=== PATIENT | female | born 1985 | race Hispanic/Latino ===

== ENCOUNTER → 2017-10-26 | Day surgery (SDC) | payer BC, OTHER ==
[~2017-10-26] MED LIST: METHOTREXATE SODIUM IM SCH; PRE FILLED IM SCH
== END ==
LOC: ER/OP 11:53
PROVIDERS: ATTEND Emergency Medicine
DX: O03.9 Complete or unspecified spontaneous abortion without complication (principal)
CPT/HCPCS: J9250

== ENCOUNTER 2018-03-03 14:40 | Emergency (ER) | payer BC ==
[2018-03-03 15:13] LABS: Bilirubin Negative (Negative); Blood, Urine Negative (Negative); Clarity CLEAR (Clear); Glucose, Urine (Dipstick) Negative (Negative); Leukocyte Negative (Negative); Nitrite Negative (Negative); Protein, Urine (Dipstick) Trace mg/dL (Neg-Trace); Specific Gravity, Urine 1.036 (1.002-1.036); pH, Urine 6.5 (5.0-9.0)
[2018-03-03 15:14] LABS: #Eosinphils 0.1 thou/uL (0.0-0.7); #Lymphocytes 1.8 thou/uL (1.20-3.40); #Monocytes 0.5 thou/uL (0.11-0.59); #Neutrophils 5.1 thou/uL (1.40-6.50); %Basophils 0.6 % (0.0-1.0); %Eosinophils 0.8 % (0.0-10.0); %Neutrophils 68.7 % (42.0-75.0); Hemoglobin 13.1 g/dL (12.0-16.0); Mean Corpuscular HGB CONC 34.6 g/dL (32.0-36.0); Mean Corpuscular Hemoglobin 33.9 pg (27.0-31.0); Mean Corpuscular Volume 97.9 fL (78.0-98.0); Mean Platelet Volume 7.5 fL (7.4-10.4); Platelet Count 267 thou/uL (130-400); RBC Distribution Width 11.7 % (11.5-14.5); Red Blood Cell (RBC) Count 3.88 mill/uL (4.20-5.40); White Blood Cell (WBC) Count 7.4 thou/uL (4.8-10.8)
[2018-03-03 15:32] LABS: ALT (SGPT) 57 U/L (8-55); AST (SGOT) 35 U/L (5-34); Albumin 4.6 g/dL (3.5-5.0); Alkaline Phosphatase 67 U/L (40-150); Anion Gap 13 mmol/L (10-20); BUN (Urea Nitrogen) 15 mg/dL (7.0-18.7); Bilirubin, Total 0.5 mg/dL (0.2-1.2); Calc. Creatinine Clearance 0 mL/min (70-130); Calcium 9.6 mg/dL (7.8-10.44); Carbon Dioxide 26 mmol/L (22-29); Chloride 104 mmol/L (98-107); Estimated GFR-MDRD 82; Globulin 3.4 g/dL (2.4-3.5); Glucose 88 mg/dL (70-105); Potassium 3.6 mmol/L (3.5-5.1); Sodium 139 mmol/L (136-145)
--- NOTE | 2018-03-03 15:53 | ULT ---
PELVIC SONOGRAM TRANSABDOMINAL AND TRANSVAGINAL IMAGING WITH DUPLEX EVALUATION: HISTORY: Pain and bleeding. Recent miscarriage. FINDINGS: The urinary bladder is decompressed. The uterus has a heterogeneous echotexture and is 9.8 cm. The endometrium is 1.2 cm without a gestational sac apparent. Minimal free fluid within the pelvis. The right ovary is 2.4 cm and has a normal appearance, with go od color and spectral Doppler flow. The left ovary measures up to 5.5 cm and demonstrates good color and spectral Doppler flow. Complex cyst at the left adnexa measures up to 3.9 x 3.1 cm in greatest diameter. IMPRESSION: No evidence of intrauterine gestation. In the setting of early , the complex left adnexal l esion, 3.9 cm, must be viewed with some degree of concern regarding the possibility of an ectopic pre gnancy. Close laboratory correlation and sonographic followup is required. POS: ROBIN
== END 2018-03-03 17:19 | disposition home or self-care (01) ==
LOC: ERS 14:40
DX: O20.9 Hemorrhage in early pregnancy, unspecified (principal); Z3A.01 Less than 8 weeks gestation of pregnancy
CPT/HCPCS: 36415; 76856; 80053; 81003; 84702; 85025; 86850; 86900; 86901

== ENCOUNTER 2019-08-24 05:35 | Inpatient (IN) | payer BC, OTHER ==
[2019-08-24] MEDS ORDERED: CEFAZOLIN 2 GM in Premix Bag 1 BAG IVPB SCH (06:14)
[2019-08-24] MEDS ORDERED: Ondansetron PF 4 MG/2 ML Vial IVP PRN ×3 (06:14→09:08)
[2019-08-24] MEDS ORDERED: Bicitra 30 ML UDCUP PO SCH (06:14)
[2019-08-24] MEDS ORDERED: Promethazine HCl 25 MG/ML VIAL IM PRN ×2 (06:14→08:31)
[2019-08-24] MEDS ORDERED: Lactated Ringer's 1,000 ML IV SCH (06:14)
[2019-08-24] MEDS ORDERED: hydrALAZINE 20 MG/ML VIAL SLOW IVP PRN ×2 (06:14→09:08)
[2019-08-24 06:18] VITALS: BMI 30.7
[2019-08-24 06:35] LABS: Hemoglobin 11.2 g/dL (12.0-16.0); Mean Corpuscular Volume 94.2 fL (78.0-98.0); Platelet Count 262 thou/uL (130-400); RBC Distribution Width 12.2 % (11.5-14.5); Red Blood Cell (RBC) Count 3.51 mill/uL (4.20-5.40); White Blood Cell (WBC) Count 6.7 thou/uL (4.8-10.8)
[2019-08-24 07:13] LABS: HBSAg Index 0.18 S/CO (0-0.99); Hep B Surf Ag Non-Reactive S/CO (NonReactive); Syphilis Antibody Nonreactive (Nonreactive); Syphilis Antibody Index 0.04 S/CO (<1.00 Non-Reactive)
[2019-08-24] MEDS ORDERED: MORPHINE 5 MG/10 ML PF VIAL ONE (07:15)
[2019-08-24] MEDS ORDERED: Fentanyl 100 MCG/2 ML VIAL ONE (07:15)
[2019-08-24] MEDS ORDERED: Dexamethasone 4 mg/ml Vial ONE (07:16)
[2019-08-24] MEDS ORDERED: PHENYLEPHRINE-NS 100 MCG/ML 10 ML SYRINGE ONE (07:16)
[2019-08-24] MEDS ORDERED: Oxytocin 10 UNITS/ML VIAL ONE (07:16)
[2019-08-24] MEDS ORDERED: Ketorolac Tromethamine 30 MG/ML VIAL ONE (07:16)
[2019-08-24] MEDS ORDERED: ePHEDrine/0.9% NaCl/PF SYRINGE 50 mg/10 ml ONE (07:16)
[2019-08-24] MEDS ORDERED: Ondansetron PF 4 MG/2 ML Vial ONE (07:16)
[2019-08-24] MEDS ORDERED: Meperidine HCl/PF 25 MG/ML VIAL SLOW IVP PRN (08:31)
[2019-08-24] MEDS ORDERED: Promethazine HCl 25 MG SUPP PR PRN (08:31)
[2019-08-24] MEDS ORDERED: Naloxone HCl 0.4 mg/ml Vial IV PRN (08:31)
[2019-08-24] MEDS ORDERED: HYDROmorphone 2 MG/ML VIAL SLOW IVP PRN (08:31)
[2019-08-24] MEDS ORDERED: Naloxone HCl 0.4 mg/ml Vial IVP PRN ×2 (08:31)
[2019-08-24] MEDS ORDERED: L&D-Morphine 4 MG/ML VIAL SLOW IVP PRN (08:31)
[2019-08-24] MEDS ORDERED: Ondansetron HCl/PF 4 MG/2 ML Vial IVP PRN (08:31)
[2019-08-24] MEDS ORDERED: diphenhydrAMINE 50 MG/ML VIAL IVP PRN (08:31)
[2019-08-24] MEDS ORDERED: Communication Order-Pharmacy FS SCH (08:45)
[2019-08-24] MEDS ORDERED: Ketorolac Tromethamine 30 MG/ML VIAL IVP SCH (08:45)
[2019-08-24] MEDS ORDERED: Lanolin Ointment 7 GM TUBE TOP PRN (09:08)
[2019-08-24] MEDS ORDERED: Simethicone Chewable 80 MG TAB PO PRN (09:08)
[2019-08-24] MEDS ORDERED: Bisacodyl 10 MG SUPP PR PRN (09:08)
[2019-08-24] MEDS ORDERED: Zolpidem Tartrate 5 MG TAB PO PRN (09:08)
[2019-08-24] MEDS ORDERED: diphenhydrAMINE 25 MG CAP PO PRN (09:08)
[2019-08-24] MEDS ORDERED: Acetaminophen 325 MG TAB PO PRN (09:08)
[2019-08-24] MEDS ORDERED: Misoprostol 200 MCG TAB PR PRN (09:08)
[2019-08-24] MEDS ORDERED: Adacel (T-DAP) 0.5 ML SYRINGE IM ONE (09:08)
[2019-08-24] MEDS ORDERED: Acetaminophen/Codeine 30-300mg Tablet PO PRN ×2 (09:08→20:45)
[2019-08-24] MEDS: Lactated Ringer's 1,000 ML IV SCH ×3 (14:05→18:27)
--- NOTE | 2019-08-24 16:29 | OP ---
DATE OF PROCEDURE: 08/24/2019 RESIDENT SURGEON: Trinity Schmidt DO ATTENDING SURGEON/PRIMARY SURGEON: Parrish Peng MD PROCEDURE PERFORMED: Repeat low-transverse section. PREOPERATIVE DIAGNOSES: 1. Term intrauterine . 2. Previous section. 3. History of spontaneous x3. POSTOPERATIVE DIAGNOSES: 1. Term intrauterine , delivered. 2. Previous section. 3. History of spontaneous x3. ANESTHESIA: Spinal. INDICATIONS FOR PROCEDURE: This is a 34-year-old, G5, P1-0-3-1, at 39 weeks' gestation, who presents for repeat scheduled . DESCRIPTION OF PROCEDURE: After risks, benefits, and alternatives were explained to the patient, she gave informed consent. Preoperative antibiotics included cefazolin 2 g IV. The patient was taken to the operating room, and spinal anesthesia was initiated. She was placed in the supine position with a left tilt and prepped and draped in the usual sterile fashion. An elliptical incision was made along the previous scar, and the previous scar was removed with the scalpel. The incision was then carried down to the level of the fascia, which was sharply nicked. The fascial cut was extended bilaterally with Lux scissors. The inferior and superior edges of the cut fascial edges were elevated with Eddi clamps, and the underlying rectus muscles were sharply and bluntly dissected free. Two hemostats were then used to grasp the recti muscles on either side at aponeurosis. The cut along the rectus muscles was then extended superiorly and inferiorly with careful attention to the bladder. The peritoneum was entered bluntly and retracted manually. The bladder blade was placed. Bladder flap was created with Metzenbaum scissors. A low-transverse score was made with the scalpel, and the uterus was entered in the midline with the scalpel. Clear fluid was seen. Hysterotomy was extended manually. The infant was noted to be vertex and was delivered via vacuum-assisted delivery with only one attempt and no pop- offs. The vacuum was in place for less than 15 seconds. Mouth and nares were bulb suctioned. Cord was clamped and cut, and grossly normal male was handed to the waiting nurse. Cord blood was then obtained. Placenta was manually extracted and found to be intact with 3-vessel cord and discarded. The uterus was externalized. The endometrium was curetted with a dry lap. The bladder blade was replaced, and the uterus was closed with a running locking #1 chromic suture. A [id number] stitch was also used near the right midline portion of the uterus in a horizontal fashion for hemostasis. The bladder flap was closed using 2-0 Monocryl. Following this, hemostasis was noted. The abdomen was irrigated and suctioned free of clots. Seprafilm was placed on the uterus, and then the uterus was internalized, and the hysterotomy was again noted to be hemostatic. The peritoneum was closed with 2-0 Vicryl. The rectus muscles were then approximated using #1 chromic suture. The fascia was closed with a running nonlocking 0 Vicryl suture. The subcutaneous tissue was irrigated, and bleeders were cauterized. The skin was approximated with 4-0 monofilament, and Dermabond was applied. A pressure dressing was then applied using fluffs and foam tape. All counts were correct. The patient tolerated the procedure well and was taken to recovery room in stable condition. QBL: 665 mL COMPLICATIONS: None. SPECIMEN: Cord blood sent to lab for blood type. FINDINGS: Grossly normal male infant with apgars of 8/9 at 1 and 5 minutes, respectively. Weight of 4233g. Grossly normal placenta with 3-vessel cord discarded. DRAINS: Hussein to gravity, draining clear urine. Job ID: [id number] [facility]
[2019-08-24] MEDS: Ferrous Sulfate 325 MG TAB PO SCH (18:27)
[2019-08-24] MEDS ORDERED: Meperidine HCl/PF 25 MG/ML VIAL IM PRN (20:45)
[2019-08-24] MEDS: Ketorolac Tromethamine 30 MG/ML VIAL IVP PRN (22:06)
[2019-08-25] MEDS: Ketorolac Tromethamine 30 MG/ML VIAL IVP PRN (06:01)
[2019-08-25 06:05] LABS: Hemoglobin 8.9 g/dL (12.0-16.0); Mean Corpuscular HGB CONC 34.7 g/dL (32.0-36.0); Mean Corpuscular Hemoglobin 33.7 pg (27.0-31.0); Mean Corpuscular Volume 96.9 fL (78.0-98.0); Mean Platelet Volume 9.3 fL (7.4-10.4); Platelet Count 168 thou/uL (130-400); RBC Distribution Width 12.2 % (11.5-14.5); Red Blood Cell (RBC) Count 2.63 mill/uL (4.20-5.40); White Blood Cell (WBC) Count 6.1 thou/uL (4.8-10.8)
[2019-08-25] MEDS: Lactated Ringer's 1,000 ML IV SCH ×3 (09:04→18:15)
[2019-08-25] MEDS: Docusate Calcium (SURFAK) 240 MG CAP PO SCH ×2 (09:04→09:13)
[2019-08-25] MEDS: Ferrous Sulfate 325 MG TAB PO SCH ×2 (09:12→19:09)
[2019-08-25] MEDS: Prenatal Vitamin 1 TAB PO SCH (09:13)
[2019-08-25] MEDS: Ibuprofen 800 MG TAB PO SCH (14:40)
[2019-08-25] MEDS: Acetaminophen/Codeine 30-300mg Tablet PO PRN (14:44)
[2019-08-26] MEDS: Acetaminophen/Codeine 30-300mg Tablet PO PRN ×2 (05:28→09:31)
[2019-08-26 08:04] VITALS: BP 106/66; TEMP 98.4
[2019-08-26] MEDS: Docusate Calcium (SURFAK) 240 MG CAP PO SCH ×2 (08:20→09:30)
[2019-08-26] MEDS: Ibuprofen 800 MG TAB PO SCH ×2 (08:20→08:21)
[2019-08-26] MEDS: Lactated Ringer's 1,000 ML IV SCH ×2 (08:21→09:33)
[2019-08-26] MEDS: Prenatal Vitamin 1 TAB PO SCH (09:30)
[2019-08-26] MEDS: Ferrous Sulfate 325 MG TAB PO SCH (09:30)
--- NOTE | 2019-08-28 10:01 | PQF ---
Adri Sanchez L JUSTIN MD [id number] CLINICAL DOCUMENTATION CLARIFICATION FORM: POST DISCHARGE Addendum to original discharge summary date: ____ Late entry note date: __ DATE:08/28/2019 ATTN: Cindy RUELAS MD Please exercise your independent, professional judgment in responding to the clarification form. Clinical indicators are provided on the bottom of this form for your review Please check appropriate box(s): [ ] Acute blood loss anemia [ X ] Post-op anemia related to acute blood loss [ ] Chronic Anemia: [ ] Blood loss [ ] Hemolytic [ ] Simple [ ] Due to Vitamin B12 Deficiency [ ] Other diagnosis [ ] Unable to determine For continuity of documentation, please document condition throughout progress notes and discharge summary. Thank You. CLINICAL INDICATORS - SIGNS / SYMPTOMS / LABS HGB-11.2 on 08/24,8.9 on 08/25,HCT-33.1 on 08/24, 25.5 on 08/25-Documented in Laboratory Repeat low-transverse section-Documented in OP note on 08/24 by Brayan Petersen QBL-[id number] ml-Documented in OP note on 08/24 by Brayan Petersen RISK FACTORS Repeat low-transverse section-Documented in OP note on 08/24 by Brayan Petersen TREATMENTS: Ferrous sulfate 325 mg po -Documented in medication snapshot (This form is maintained as a part of the permanent medical record) 2014 [employer]. All Rights Reserved [email or web address] [not provided] [email or web address]
== END 2019-08-26 14:09 | disposition home or self-care (01) | DRG 787 ==
LOC: L&D 05:35 → 3SW 12:09
PROVIDERS: ADMIT Obstetrics & Gynecology; ATTEND Obstetrics & Gynecology
PROC: 10D00Z1 Extraction of Products of Conception, Low, Open Approach (ICD-10-PCS; principal; 2019-08-24)
DX: O34.211 Maternal care for low transverse scar from previous cesarean delivery (principal); D62 Acute posthemorrhagic anemia; Z3A.39 39 weeks gestation of pregnancy; Z37.0 Single live birth; O99.02 Anemia complicating childbirth
CPT/HCPCS: 36415; 51702; 85027; 86780; 86850; 86900; 86901; 87340; 90715; J0690; J1100; J1885; J2274; J2405; J2550; J2590; J3010